=== PATIENT | female | born 1975 | race African-American/Black ===

== ENCOUNTER 2024-10-01 07:30 | Emergency (ER) | payer SELFPAY ==
[~2024-10-01] VITALS: Ht 167.6 cm; Wt 72.0 kg
[2024-10-01 07:36] VITALS: O2SAT 97
[2024-10-01 09:13] LABS: HEMATOCRIT. 31.9 % (36.0-48.0); HEMOGLOBIN. 9.6 g/dL (12.0-16.0); MEAN CORPUSCULAR HEMOGLOBIN 27.6 pg (28.0-32.0); MEAN CORPUSCULAR HGB CONC 30.1 g/dL (31.0-37.0); MEAN CORPUSCULAR VOLUME 91.5 fL (81.0-99.0); MEAN PLATELET VOLUME 8.4 fl (7.4-10.4); PLATELET 231 x1000/uL (130-400); RED BLOOD CELL COUNT 3.48 mill/uL (4.2-5.4); RED CELL DISTRIBUTION WIDTH 16.9 % (11.6-14.6)
[2024-10-01 09:15] LABS: DIFFERENTIAL COMMENT 1
[2024-10-01 09:44] LABS: CHLORIDE 107 mEq/L (98-107); POTASSIUM 3.4 mEq/L (3.5-5.1); SODIUM 141 mEq/L (136-145)
[2024-10-01 09:49] LABS: ETHANOL BLOOD < 10 mg/dL (<10); HCG SCREEN NEGATIVE
[2024-10-01 10:00] LABS: CALCIUM 9.9 mg/dL (8.7-10.4); CARBON DIOXIDE 26 mEq/L (21-32)
[2024-10-01 10:05] LABS: GLUCOSE 76 mg/dL (70-105); UREA NITROGEN BLOOD 9 mg/dL (9-23)
[2024-10-01 10:07] LABS: ACETAMINOPHEN < 2 ug/mL (10-30)
[2024-10-01 10:17] LABS: CREATININE 0.6 mg/dL (0.6-1.0)
[2024-10-01 10:33] LABS: PLATELET ESTIMATE NORMAL
[2024-10-01 19:24] VITALS: BP 118/63; PULSE 81; RESP 18; TEMP 36.6; O2SAT 100
== END 2024-10-01 19:28 | disposition home or self-care (01) ==
LOC: EDBD 07:30 → ER 07:30
DX: F84.0 Autistic disorder (principal); D64.9 Anemia, unspecified; Z79.899 Other long term (current) drug therapy
CPT/HCPCS: 36415; 80048; 80307; 80320; 80329; 84703; 85025; 99285; G0480